=== PATIENT | male | born 1985 | race Caucasian/White ===

== ENCOUNTER 2017-02-28 15:10 | Emergency (ER) | payer SELFPAY ==
[2017-02-28 15:27] VITALS: BP 143/100
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
== END 2017-02-28 16:15 | disposition home or self-care (01) ==
LOC: JD.ED 15:10
DX: H10.211 Acute toxic conjunctivitis, right eye (principal); X58.XXXA Exposure to other specified factors, initial encounter
CPT/HCPCS: 99283